=== PATIENT | female | born 1960 | race Caucasian/White ===

== ENCOUNTER 2018-05-17 15:07 | Inpatient (IN) | payer MEDICARE, OTHER ==
[2018-05-17 15:43] LABS: ADD MAN DIFF? NO
[2018-05-17 15:47] LABS: WHITE BLOOD COUNT 8.9 10^3/ul (4.8-10.8)
[2018-05-17 15:47] LABS: BASOPHILS % 0.5 % (0.0-2.0); EOSINOPHILS # 0.1 10^3/ul (0.0-0.5); EOSINOPHILS % 1.4 % (0.0-7.0); HEMATOCRIT 48.7 % (37.0-47.0); HEMOGLOBIN 16.5 g/dl (12.0-16.0); LYMPHOCYTES # 1.8 10^3/ul (0.8-2.9); LYMPHOCYTES % 20.2 % (15.0-51.0); MEAN CORPUSCULAR HEMOGLOBIN 30.1 pg (29.0-33.0); MEAN CORPUSCULAR HGB CONC 33.9 g/dl (32.0-37.0); MEAN CORPUSCULAR VOLUME 88.7 fl (82.0-101.0); MEAN PLATELET VOLUME 9.8 fl (7.4-10.4); MONOCYTE # 0.6 10^3/ul (0.3-0.9); MONOCYTES % 6.9 % (0.0-11.0); NEUTROPHIL # 6.3 10^3/ul (1.6-7.5); NEUTROPHILS % 70.8 % (39.0-77.0); PLATELET COUNT 262 10^3/UL (140-415); RED BLOOD COUNT 5.49 10^6/ul (4.20-5.40); RED CELL DISTRIBUTION WIDTH 12.8 % (11.5-14.5)
[2018-05-17 16:07] LABS: ANION GAP 12 (8-16); BLOOD UREA NITROGEN 17 mg/dl (7-20); CALCIUM 9.5 mg/dl (8.4-10.2); CARBON DIOXIDE 23 mmol/L (21-31); CHLORIDE 109 mmol/L (97-110); CREATININE 1.06 mg/dl (0.44-1.00); GLUCOSE 125 mg/dl (70-220); INR 0.94; POTASSIUM 4.3 mmol/L (3.5-5.1); PROTIME 12.7 Sec (11.9-14.9); SODIUM 140 mmol/L (135-144)
[2018-05-17 16:20] LABS: B-TYPE NATRIURETIC PEPTIDE 185 PG/ML (0-125); TROPONIN-I < 0.010 ng/ml (0.000-0.120)
[2018-05-17] MEDS: DILTIAZEM 25 MG INJ IV (16:20)
[2018-05-17] MEDS: DILTIAZEM-D5W 125MG/125ML DRIP 125 ML IV (16:49)
[2018-05-17] MEDS: KETOROLAC 15 MG INJ IV (18:18)
[2018-05-17] MEDS: LIDOCAINE/MYLANTA 40 ML BTL PO (18:18)
[2018-05-17] MEDS: FAMOTIDINE 20 MG INJ IV (18:18)
[2018-05-17] MEDS ORDERED: hydrALAzine 20 MG INJ IV (19:00)
[2018-05-17] MEDS ORDERED: NACL 0.9% 3 ML SYG IV (19:00)
[2018-05-17] MEDS ORDERED: MAGNESIUM HYDROXIDE 30ML CUP PO (19:00)
[2018-05-17] MEDS ORDERED: NA PHOSPHATE/BIPHOS 133 ML ENEMA PR (19:00)
[2018-05-17] MEDS ORDERED: ALBUTEROL/IPRATROPIUM (NEB) 3 ML AMP HHN (19:00)
[2018-05-17] MEDS ORDERED: NITROGLYCERIN (SL) 0.4 MG TAB SL (19:00)
[2018-05-17] MEDS ORDERED: LORAZEPAM 2 MG INJ IV (19:00)
[2018-05-17] MEDS ORDERED: DILTIAZEM-D5W 125MG/125ML DRIP 125 ML IV (19:00)
[2018-05-17] MEDS ORDERED: DOCUSATE SODIUM 100 MG CAP PO (19:00)
[2018-05-17] MEDS ORDERED: ACETAMINOPHEN 325 MG TAB PO ×2 (19:00→22:00)
[2018-05-17] MEDS ORDERED: HYDROCODONE/APAP (5/325) TAB PO (19:00)
[2018-05-17 19:20] LABS: FREE T4 (FREE THYROXINE) 1.03 ng/dl (0.64-1.79)
[2018-05-17] MEDS: HEPARIN 5,000 UNIT/0.5 ML VIAL SC (21:16)
[2018-05-17] MEDS: SOD CHLORIDE 0.45% 1,000 ML IV (21:24)
[2018-05-17 21:47] LABS: PARTIAL THROMBOPLASTIN TIME 28.1 Sec (25.0-35.0); PROTIME 13.3 Sec (11.9-14.9)
[2018-05-17 21:50] LABS: CREATINE KINASE 76 IU/L (23-200)
[2018-05-17] MEDS ORDERED: ONDANSETRON 4 MG INJ IV (22:00)
[2018-05-17 22:03] LABS: CK INDEX 0.6; CK-MB 0.49 ng/ml (0.0-2.4); TROPONIN-I 0.012 ng/ml (0.000-0.120)
[2018-05-17] MEDS: ONDANSETRON 4 MG INJ IV (23:09)
[2018-05-17] MEDS: morphine 2 MG INJ IV (23:10)
[2018-05-18] MEDS: traZODone 100 MG TAB PO (01:26)
[2018-05-18 03:36] LABS: ADD MAN DIFF? NO
[2018-05-18 03:38] LABS: WHITE BLOOD COUNT 6.8 10^3/ul (4.8-10.8)
[2018-05-18 03:38] LABS: BASOPHILS % 0.4 % (0.0-2.0); EOSINOPHILS # 0.1 10^3/ul (0.0-0.5); EOSINOPHILS % 2.1 % (0.0-7.0); HEMOGLOBIN 14.5 g/dl (12.0-16.0); MEAN CORPUSCULAR HEMOGLOBIN 30.1 pg (29.0-33.0); MEAN CORPUSCULAR HGB CONC 33.7 g/dl (32.0-37.0); MEAN CORPUSCULAR VOLUME 89.2 fl (82.0-101.0); MEAN PLATELET VOLUME 9.7 fl (7.4-10.4); MONOCYTE # 0.5 10^3/ul (0.3-0.9); NEUTROPHIL # 4.1 10^3/ul (1.6-7.5); NEUTROPHILS % 60.2 % (39.0-77.0); PLATELET COUNT 206 10^3/UL (140-415); RED BLOOD COUNT 4.82 10^6/ul (4.20-5.40); RED CELL DISTRIBUTION WIDTH 13.2 % (11.5-14.5)
[2018-05-18 03:53] LABS: CHOLESTEROL 225 mg/dl (100-200)
[2018-05-18 03:53] LABS: CHOL/HDL RATIO 3.7 RATIO; CREATINE KINASE 68 IU/L (23-200); HDL CHOLESTEROL 60 mg/dl (37-92); LDL CHOLESTEROL,CALCULATED 138 mg/dl; TRIGLYCERIDES 136 mg/dl (0-149)
[2018-05-18 03:55] LABS: ANION GAP 9 (8-16); BLOOD UREA NITROGEN 16 mg/dl (7-20); CALCIUM 8.9 mg/dl (8.4-10.2); CARBON DIOXIDE 27 mmol/L (21-31); CHLORIDE 108 mmol/L (97-110); CREATININE 0.96 mg/dl (0.44-1.00); GLUCOSE 101 mg/dl (70-220); MAGNESIUM 2.3 mg/dl (1.7-2.5); PHOSPHORUS 4.5 mg/dl (2.5-4.9); POTASSIUM 3.8 mmol/L (3.5-5.1); SODIUM 140 mmol/L (135-144)
[2018-05-18 04:06] LABS: CK INDEX 0.8; CK-MB 0.53 ng/ml (0.0-2.4); TROPONIN-I < 0.010 ng/ml (0.000-0.120)
[2018-05-18 04:08] LABS: HEMOGLOBIN A1C 5.7 % (0-5.9)
[2018-05-18] MEDS: PANTOPRAZOLE (EC) 40 MG TAB PO (05:26)
[2018-05-18] MEDS: HEPARIN 5,000 UNIT/0.5 ML VIAL SC (09:00)
[2018-05-18] MEDS: SOD CHLORIDE 0.45% 1,000 ML IV (09:03)
[2018-05-18] MEDS: morphine 2 MG INJ IV (09:14)
[2018-05-18] MEDS: ONDANSETRON 4 MG INJ IV (09:21)
[2018-05-18] MEDS: DILTIAZEM (CD) 120 MG CAP PO (11:38)
== END 2018-05-18 15:45 | disposition home or self-care (01) | DRG 309 ==
LOC: E/R 15:07 → MS3 21:49
PROVIDERS: Hospitalist
DX: I48.0 Paroxysmal atrial fibrillation (principal); Z68.42 Body mass index [BMI] 45.0-49.9, adult; I10 Essential (primary) hypertension; J45.909 Unspecified asthma, uncomplicated; E66.9 Obesity, unspecified; Z79.82 Long term (current) use of aspirin; K29.50 Unspecified chronic gastritis without bleeding; Z85.42 Personal history of malignant neoplasm of other parts of uterus; Z88.0 Allergy status to penicillin
CPT/HCPCS: 36415; 71045; 80048; 80061; 82550; 82553; 83036; 83735; 83880; 84100; 84439; 84443; 84484; 85025; 85610; 85730; 93005; 93306; 96365; 96366; 96372; 96375; 97161; 99291-25

== ENCOUNTER 2018-08-30 09:01 | Inpatient (IN) | payer MEDICARE, OTHER ==
[2018-08-30] MEDS: ASPIRIN 81 MG TAB PO (09:48)
[2018-08-30 09:53] LABS: ADD MAN DIFF? NO
[2018-08-30 09:55] LABS: WHITE BLOOD COUNT 7.4 10^3/ul (4.8-10.8)
[2018-08-30 09:55] LABS: BASOPHIL # 0.1 10^3/ul (0.0-0.1); BASOPHILS % 0.8 % (0.0-2.0); EOSINOPHILS # 0.1 10^3/ul (0.0-0.5); EOSINOPHILS % 1.3 % (0.0-7.0); HEMATOCRIT 50.3 % (37.0-47.0); HEMOGLOBIN 17.5 g/dl (12.0-16.0); LYMPHOCYTES # 1.7 10^3/ul (0.8-2.9); LYMPHOCYTES % 22.9 % (15.0-51.0); MEAN CORPUSCULAR HEMOGLOBIN 29.9 pg (29.0-33.0); MEAN CORPUSCULAR HGB CONC 34.8 g/dl (32.0-37.0); MEAN PLATELET VOLUME 10.1 fl (7.4-10.4); MONOCYTE # 0.7 10^3/ul (0.3-0.9); MONOCYTES % 8.9 % (0.0-11.0); NEUTROPHIL # 4.9 10^3/ul (1.6-7.5); NEUTROPHILS % 65.8 % (39.0-77.0); PLATELET COUNT 252 10^3/UL (140-415); RED BLOOD COUNT 5.85 10^6/ul (4.20-5.40); RED CELL DISTRIBUTION WIDTH 12.9 % (11.5-14.5)
[2018-08-30 10:14] LABS: INR 1.27; PROTIME 16.1 Sec (11.9-14.9); PT RATIO 1.3
[2018-08-30 10:15] LABS: PARTIAL THROMBOPLASTIN TIME 34.9 Sec (23.0-35.0)
[2018-08-30 10:16] LABS: ALANINE AMINOTRANSFERASE 35 IU/L (13-69); ALBUMIN 4.3 g/dl (3.3-4.9); ALBUMIN/GLOBULIN RATIO 2.15; ALKALINE PHOSPHATASE 84 IU/L (42-121); ANION GAP 16 (5-13); ASPARTATE AMINO TRANSFERASE 32 IU/L (15-46); BILIRUBIN,INDIRECT 0.5 mg/dl (0-1.1); BILIRUBIN,TOTAL 0.5 mg/dl (0.2-1.3); BLOOD UREA NITROGEN 15 mg/dl (7-20); CALCIUM 9.4 mg/dl (8.4-10.2); CARBON DIOXIDE 20 mmol/L (21-31); CHLORIDE 104 mmol/L (97-110); CREATININE 1.11 mg/dl (0.44-1.00); Estimated GFR 51 mL/min (>60); GLUCOSE 117 mg/dl (70-220); LIPASE 49 U/L (23-300); POTASSIUM 4.1 mmol/L (3.5-5.1); SODIUM 140 mmol/L (135-144); TOTAL PROTEIN 6.3 g/dl (6.1-8.1)
[2018-08-30 10:31] LABS: B-TYPE NATRIURETIC PEPTIDE 1180 PG/ML (0-125); TROPONIN-I < 0.012 ng/ml (0.000-0.120)
[2018-08-30 10:49] LABS: AMPHETAMINE/METHAMPHETAMINE Negative (NEGATIVE); BARBITURATES Negative (NEGATIVE); BENZODIAZEPINES Negative (NEGATIVE); CANNABINOIDS Positive (NEGATIVE); COCAINE Negative (NEGATIVE)
[2018-08-30 10:50] LABS: OPIATES Positive (NEGATIVE)
[2018-08-30] MEDS ORDERED: ALBUTEROL HFA 8 GM INHALER INH (14:00)
[2018-08-30] MEDS: REGADENOSON 0.4 MG/5 ML SYG ×2 (16:20→16:55)
[2018-08-30] MEDS: MAGNESIUM SULFATE 2 GM/50 ML 50 ML IVPB (17:45)
[2018-08-30] MEDS: HYDROCODONE/APAP (10/325) TAB PO (17:45)
[2018-08-30] MEDS: RANITIDINE 150 MG TAB PO (20:57)
[2018-08-30] MEDS: DILTIAZEM (CD) 120 MG CAP PO (20:57)
[2018-08-30] MEDS: APIXABAN 5 MG TABLET PO (20:57)
[2018-08-30] MEDS: FLECAINIDE 50 MG TAB PO (22:15)
[2018-08-31] MEDS: LEVOTHYROXINE 75 MCG TAB PO (06:45)
[2018-08-31] MEDS: RANITIDINE 150 MG TAB PO ×3 (08:03→21:22)
[2018-08-31] MEDS: DILTIAZEM (CD) 120 MG CAP PO ×2 (08:04→21:23)
[2018-08-31] MEDS: FLECAINIDE 50 MG TAB PO ×2 (08:05→21:22)
[2018-08-31] MEDS: PANTOPRAZOLE (EC) 40 MG TAB PO ×2 (08:06→17:12)
[2018-08-31] MEDS: HYDROCODONE/APAP (10/325) TAB PO ×3 (08:06→21:31)
[2018-08-31] MEDS: APIXABAN 5 MG TABLET PO ×2 (08:06→21:22)
[2018-08-31] MEDS ORDERED: DIGOXIN 0.125 MG TAB PO (09:00)
[2018-08-31 09:48] LABS: ADD MAN DIFF? NO
[2018-08-31 09:54] LABS: BASOPHILS % 0.5 % (0.0-2.0); EOSINOPHILS # 0.1 10^3/ul (0.0-0.5); EOSINOPHILS % 1.4 % (0.0-7.0); HEMATOCRIT 45.8 % (37.0-47.0); HEMOGLOBIN 15.6 g/dl (12.0-16.0); LYMPHOCYTES # 1.3 10^3/ul (0.8-2.9); LYMPHOCYTES % 22.5 % (15.0-51.0); MEAN CORPUSCULAR HEMOGLOBIN 29.8 pg (29.0-33.0); MEAN CORPUSCULAR HGB CONC 34.1 g/dl (32.0-37.0); MEAN CORPUSCULAR VOLUME 87.6 fl (82.0-101.0); MEAN PLATELET VOLUME 10.6 fl (7.4-10.4); MONOCYTE # 0.4 10^3/ul (0.3-0.9); MONOCYTES % 6.7 % (0.0-11.0); NEUTROPHILS % 68.6 % (39.0-77.0); PLATELET COUNT 221 10^3/UL (140-415); RED BLOOD COUNT 5.23 10^6/ul (4.20-5.40)
[2018-08-31 09:54] LABS: WHITE BLOOD COUNT 5.8 10^3/ul (4.8-10.8)
[2018-08-31] MEDS: LAMOTRIGINE 100 MG TAB PO (10:00)
[2018-08-31 10:18] LABS: ALANINE AMINOTRANSFERASE 40 IU/L (13-69); ALBUMIN 4.2 g/dl (3.3-4.9); ALBUMIN/GLOBULIN RATIO 2.33; ALKALINE PHOSPHATASE 67 IU/L (42-121); ANION GAP 11 (5-13); ASPARTATE AMINO TRANSFERASE 26 IU/L (15-46); BILIRUBIN,INDIRECT 0.5 mg/dl (0-1.1); BILIRUBIN,TOTAL 0.5 mg/dl (0.2-1.3); BLOOD UREA NITROGEN 18 mg/dl (7-20); CALCIUM 8.8 mg/dl (8.4-10.2); CARBON DIOXIDE 27 mmol/L (21-31); CHLORIDE 101 mmol/L (97-110); CREATININE 1.05 mg/dl (0.44-1.00); Estimated GFR 54 mL/min (>60); GLUCOSE 145 mg/dl (70-220); MAGNESIUM 2.2 mg/dl (1.7-2.5); POTASSIUM 4.3 mmol/L (3.5-5.1); SODIUM 139 mmol/L (135-144)
[2018-08-31 10:30] LABS: B-TYPE NATRIURETIC PEPTIDE 267 PG/ML (0-125)
[2018-08-31 11:28] LABS: DIGOXIN 0.6 ng/ml (1.0-2.0)
[2018-09-01] MEDS: PANTOPRAZOLE (EC) 40 MG TAB PO (06:23)
[2018-09-01] MEDS: LEVOTHYROXINE 75 MCG TAB PO (06:23)
[2018-09-01 07:12] LABS: ANION GAP 7 (5-13); BLOOD UREA NITROGEN 23 mg/dl (7-20); CALCIUM 8.7 mg/dl (8.4-10.2); CARBON DIOXIDE 25 mmol/L (21-31); CHLORIDE 107 mmol/L (97-110); Estimated GFR 51 mL/min (>60); GLUCOSE 104 mg/dl (70-220); MAGNESIUM 2.3 mg/dl (1.7-2.5); POTASSIUM 3.7 mmol/L (3.5-5.1); SODIUM 139 mmol/L (135-144)
[2018-09-01] MEDS: APIXABAN 5 MG TABLET PO (08:34)
[2018-09-01] MEDS: DILTIAZEM (CD) 120 MG CAP PO (08:35)
[2018-09-01] MEDS: FLECAINIDE 50 MG TAB PO (08:35)
[2018-09-01] MEDS: LAMOTRIGINE 100 MG TAB PO (08:35)
[2018-09-01] MEDS: HYDROCODONE/APAP (10/325) TAB PO (08:37)
== END 2018-09-01 10:50 | disposition home or self-care (01) | DRG 309 ==
LOC: E/R 09:01 → TEL 11:39
DX: I48.0 Paroxysmal atrial fibrillation (principal); Z68.42 Body mass index [BMI] 45.0-49.9, adult; E66.01 Morbid (severe) obesity due to excess calories; J45.909 Unspecified asthma, uncomplicated; I10 Essential (primary) hypertension; K29.50 Unspecified chronic gastritis without bleeding; F31.9 Bipolar disorder, unspecified; M54.12 Radiculopathy, cervical region; M54.16 Radiculopathy, lumbar region; Z79.01 Long term (current) use of anticoagulants; Z85.42 Personal history of malignant neoplasm of other parts of uterus
CPT/HCPCS: 36415; 71045; 78452; 80048; 80053; 80162; 80307; 83690; 83735; 83880; 84443; 84484; 85025; 85610; 85730; 93005; 93017; 93306; 93970; 99285-25